=== PATIENT | female | born 1955 | race Caucasian/White ===

== ENCOUNTER 2018-10-26 13:59 | Emergency (ER) | payer OTHER ==
[2018-10-26] MEDS: IBUPROFEN 600 MG TAB PO (17:01)
== END 2018-10-26 19:01 | disposition home or self-care (01) ==
LOC: E/R 13:59 → FTE 19:01
DX: S92.425A Nondisplaced fracture of distal phalanx of left great toe, initial encounter for closed fracture (principal); M19.90 Unspecified osteoarthritis, unspecified site; W10.0XXA Fall (on)(from) escalator, initial encounter; Y92.9 Unspecified place or not applicable
CPT/HCPCS: 73610; 73630; 73630-LT; 99284-25